=== PATIENT | male | born 1990 | race Caucasian/White ===

== ENCOUNTER 2016-06-08 10:50 | Emergency (ER) | payer OTHER ==
[~2016-06-08] VITALS: Ht 182.9 cm; Wt 99.8 kg
[2016-06-08] MEDS ORDERED: LORA2TAB9 PO (12:40)
[2016-06-08 12:54] VITALS: BP 128/70
== END 2016-06-08 12:55 | disposition home or self-care (01) ==
LOC: M ED 11:39
DX: F41.0 Panic disorder [episodic paroxysmal anxiety] (principal); F41.1 Generalized anxiety disorder; F32.9 Major depressive disorder, single episode, unspecified; Z79.899 Other long term (current) drug therapy